=== PATIENT | female | born 1985 | race Two or more races ===

== ENCOUNTER 2023-10-19 21:08 | Emergency (ER) | payer OTHER ==
[~2023-10-19] VITALS: Ht 162.6 cm; Wt 81.6 kg
[2023-10-19] MEDS ORDERED: OZEMPIC2 MG/0.75 SQ (21:28)
[2023-10-19] MEDS ORDERED: FAMOTIDINE/PF 20 MG/2 ML VIAL IV PUSH ONE (22:00)
[2023-10-19] MEDS ORDERED: ONDANSETRON HCL 2 MG/ML VIAL IV ONE (22:00)
[2023-10-19] MEDS ORDERED: HYOSCYAMINE SULFATE 0.125 MG TAB.SUBL SL ONE (22:00)
[2023-10-19 22:24] LABS: HEMATOCRIT 43.3 % (36.0-45.00); HEMOGLOBIN 14.9 g/dL (12.0-15.00); MEAN CELL VOLUME 83.2 fL (80.00-100.00); MEAN CORPUSCULAR HEMOGLOBIN 28.5 pg (27.00-32.0); MEAN CORPUSCULAR HGB CONC 34.3 g/dl (32.0-36.0); PLATELET COUNT 372 K/uL (150-450); RED BLOOD COUNT 5.21 M/uL (4.00-6.00)
[2023-10-19 22:41] LABS: ALBUMIN 3.9 gm/dL (3.4-5.0); ALKALINE PHOSPHATASE 133 U/L (50-136); ALT/SGPT 33 U/L (12-78); AMYLASE 57 U/L (25-115); ANION GAP 10 (10.0-20.0); AST/SGOT 37 U/L (15-37); BLOOD UREA NITROGEN 10 mg/dL (7-18); BUN CREA RATIO 10 (7.0-25.0); CALCIUM 9.2 mg/dL (8.5-10.1); CARBON DIOXIDE 24 mEq/L (21-32); CHLORIDE 109 mmol/L (98-107); CREATININE SERUM 1.01 mg/dL (0.55-1.02); GFR 60.71; GLOBULINA 4.9 G/DL (2.4-3.5); GLUCOSE FASTING 113 mg/dL (65-100); HCG QUANTITATIVE < 1 mUI/mL (1-3); LIPASE 24 U/L (13-75); OSMOLALITY SERUM 279 MOSM/KG (275-295); POTASSIUM 3.32 mEq/L (3.5-5.1); SODIUM 140 mmol/L (136-145); TOTAL PROTEIN 8.8 gm/dL (6.4-8.2)
[2023-10-19] MEDS ORDERED: 0.9 % SODIUM CHLORIDE 1,000 ML IV ONE (22:45)
[2023-10-20] MEDS ORDERED: PEPCID40 MG PO (00:47)
[2023-10-20] MEDS ORDERED: ONDANSETRON ODT8 MG PO (00:47)
[2023-10-20] MEDS ORDERED: INTESTINEX680 M1 PO ×2 (00:47)
== END 2023-10-20 01:20 ==
LOC: ER 21:09
PROVIDERS: General Practice
DX: K52.9 Noninfective gastroenteritis and colitis, unspecified (principal); Z88.8 Allergy status to other drugs, medicaments and biological substances